=== PATIENT | male | born 1995 | race Caucasian/White ===

== ENCOUNTER → 2024-06-16 13:19 | Outpatient (CLI) | payer OTHER, SELFPAY ==
--- NOTE | 2024-06-16 13:26 | DI.CT.S_ITS ---
PROCEDURE: CT CHEST WO CON INDICATIONS: MULTIPLE NODULES TECHNIQUE: Noncontrast 5 mm thick sections acquired from the pulmonary apices to the posterior costophrenic angles. 1 mm lung window, 5 mm thick coronal and sagittal and 7 mm axial MIP reformats were then acquired. For radiation dose reduction, the following was used: automated exposure control, adjustment of mA and/or kV according to patient size. COMPARISON: None. FINDINGS: Image quality: Diagnostic. Lower Neck: No enlarged lymph nodes. Thyroid: No thyroid nodules which require sonographic follow up, per consensus guidelines. Axillae: No enlarged lymph nodes. Chest Wall: Gynecomastia Bones: Unremarkable. Lungs and Pleura: No pneumothorax or pleural effusions. Right lower lobe calcified 1.2 cm granuloma. Right upper lobe 0.6 cm and 0.8 cm calcified nodes noted. Right lower lobe 0.9 cm partially calcified nodule noted in the lateral costophrenic sulcus. Associated subcarinal calcified adenopathy present as well Heart: Heart size is normal. No pericardial effusion. Thoracic Vessels: The aorta and pulmonary arteries demonstrate normal size. Mediastinum and Sakshi: No enlarged lymph nodes. Esophagus: No wall thickening. No hiatal hernia. Upper Abdomen: Splenomegaly, 16.1 cm IMPRESSION: Prior granulomatous disease. Several calcified pulmonary granulomas noted bilaterally associated with calcified subcarinal lymphadenopathy. Given patient's age, consider 1 follow-up study at 6 months to assure stability. Approved by: Arthur Shaw M.D. on 06/16/2024 at 19:38
== END ==
DX: D71 Functional disorders of polymorphonuclear neutrophils (principal); R91.8 Other nonspecific abnormal finding of lung field; R16.1 Splenomegaly, not elsewhere classified
CPT/HCPCS: 71250